=== PATIENT | female | born 1970 | race Caucasian/White ===

== ENCOUNTER 2019-12-09 09:51 | Emergency (ER) | payer MEDICARE ==
[~2019-12-09] VITALS: Ht 165.1 cm; Wt 56.0 kg
[2019-12-09 09:57] VITALS: BP 175/91
== END 2019-12-09 11:07 | disposition home or self-care (01) ==
LOC: ED 10:50
DX: J45.30 Mild persistent asthma, uncomplicated (principal); Z76.0 Encounter for issue of repeat prescription; F17.210 Nicotine dependence, cigarettes, uncomplicated
CPT/HCPCS: 99283

== ENCOUNTER 2020-07-01 17:13 | Emergency (ER) | payer SELFPAY ==
[~2020-07-01] VITALS: Ht 165.1 cm; Wt 53.6 kg
--- NOTE | 2020-07-01 18:19 | NUR ---
NO ANSWER X 1
--- NOTE | 2020-07-01 18:43 | NUR ---
PT AMBULATORY TO ROOM 23 W/ C/O NECK PAIN. PT STATES "I'M CLUMSY AND FALL ALL THE TIME AND I MUST'VE REINJURED MY NECK". PT DENIES LIGHTHEADED/DIZZINESS PRIOR TO FALLS. PT HAS HX MULTIPLE NECK INJURIES. DENIES ANY NEURO DEFECITS. NEURO ASSESSMENT PT INTACT. PT RESTING ON LIZ. PAULINO. S
--- NOTE | 2020-07-01 19:05 | NUR ---
REPORT GIVEN TO AJAY LIRIANO.
--- NOTE | 2020-07-01 19:06 | NUR ---
PT CHART REVIEWED AND PLACED FOR RECHECK.
[2020-07-01 19:21] VITALS: BP 161/95
--- NOTE | 2020-07-01 19:21 | NUR ---
BREAK RN: PT CURRENTLY RESTING ON D4P. NO ACUTE DISTRESS NOTED AT THIS TIME. PT AO X 4. SKIN COOL, PINK AND DRY. PT AWARE WE ARE WAITING FOR IMAGING RESULTS. PT ON CONT BP AND SPO2 MONITORS. CALL LIGHT WITHIN REACH.
== END 2020-07-01 20:09 | disposition home or self-care (01) ==
LOC: ED 17:23
DX: G89.29 Other chronic pain (principal); M47.812 Spondylosis without myelopathy or radiculopathy, cervical region; M54.2 Cervicalgia; F17.210 Nicotine dependence, cigarettes, uncomplicated; J44.9 Chronic obstructive pulmonary disease, unspecified
CPT/HCPCS: 72050; 99406